=== PATIENT | male | born 1980 ===

== ENCOUNTER 2017-08-29 20:46 | Emergency (ER) | payer OTHER ==
[2017-08-29] MEDS: SOD CHLORIDE 0.9% 1,000 ML IV (21:50)
[2017-08-29] MEDS: ONDANSETRON 4 MG INJ IV (21:50)
[2017-08-29 21:58] LABS: ADD MAN DIFF? NO
[2017-08-29 22:01] LABS: WHITE BLOOD COUNT 9.6 10^3/ul (4.8-10.8)
[2017-08-29 22:01] LABS: BASOPHILS % 0.3 % (0.0-2.0); EOSINOPHILS % 0.1 % (0.0-7.0); HEMOGLOBIN 13.4 g/dl (14.0-18.0); LYMPHOCYTES % 20.5 % (15.0-51.0); MEAN CORPUSCULAR HEMOGLOBIN 29.3 pg (29.0-33.0); MEAN CORPUSCULAR HGB CONC 35.3 g/dl (32.0-37.0); MEAN PLATELET VOLUME 10.5 fl (7.4-10.4); MONOCYTE # 0.5 10^3/ul (0.3-0.9); NEUTROPHIL # 7.1 10^3/ul (1.6-7.5); NEUTROPHILS % 73.7 % (39.0-77.0); PLATELET COUNT 212 10^3/UL (140-415); RED BLOOD COUNT 4.58 10^6/ul (4.70-6.10); RED CELL DISTRIBUTION WIDTH 12.6 % (11.5-14.5)
[2017-08-29 22:18] LABS: ALANINE AMINOTRANSFERASE 31 IU/L (13-69); ALBUMIN 4.8 g/dl (3.3-4.9); ALBUMIN/GLOBULIN RATIO 1.54; ALKALINE PHOSPHATASE 49 IU/L (42-121); ANION GAP 24 (8-16); ASPARTATE AMINO TRANSFERASE 31 IU/L (15-46); BILIRUBIN,INDIRECT 0.1 mg/dl (0-1.1); BILIRUBIN,TOTAL 0.1 mg/dl (0.2-1.3); BLOOD UREA NITROGEN 10 mg/dl (7-20); CALCIUM 8.2 mg/dl (8.4-10.2); CARBON DIOXIDE 26 mmol/L (21-31); CHLORIDE 98 mmol/L (97-110); CREATININE 0.83 mg/dl (0.61-1.24); GLUCOSE 104 mg/dl (70-220); LIPASE 37 U/L (23-300); POTASSIUM 3.7 mmol/L (3.5-5.1); SODIUM 144 mmol/L (135-144); TOTAL PROTEIN 7.9 g/dl (6.1-8.1)
[2017-08-29] MEDS ORDERED: IOHEXOL 0 ML ×3 (23:13→23:14)
[2017-08-29] MEDS ORDERED: SOD CHLORIDE 0.9% 100 ML (23:13)
[2017-08-30] MEDS: IOHEXOL 100 ML (00:04)
[2017-08-30] MEDS: SOD CHLORIDE 0.9% 100 ML (00:05)
== END 2017-08-30 01:13 ==
LOC: E/R 08-30 01:13
DX: S10.93XA Contusion of unspecified part of neck, initial encounter (principal); S10.91XA Abrasion of unspecified part of neck, initial encounter; S39.91XA Unspecified injury of abdomen, initial encounter; F10.129 Alcohol abuse with intoxication, unspecified; R40.2352 Coma scale, best motor response, localizes pain, at arrival to emergency department; R40.2232 Coma scale, best verbal response, inappropriate words, at arrival to emergency department; X94.0XXA Assault by shotgun, initial encounter; Y92.9 Unspecified place or not applicable
CPT/HCPCS: 36415; 70498; 74177; 80053; 83690; 85025; 96374; 99285-25